=== PATIENT | female | born 1970 | race Caucasian/White ===

== ENCOUNTER 2024-08-30 08:14 | Day surgery (SDC) | payer MEDICAID ==
[2024-08-30] MEDS ORDERED: Depo-Medrol 40 MG/ML IM ONE (08:15)
[2024-08-30] MEDS ORDERED: BUPIVACAINE 0.5% VIAL IJ ONE (08:15)
[2024-08-30] MEDS ORDERED: propofoL IV ONE (10:24)
[2024-08-30] MEDS ORDERED: Lactated Ringers 1,000 ML IV ONE (10:53)
--- NOTE | 2024-08-30 12:39 | XRAY ---
Indication: Left shoulder and subacromial bursa injection. Intraoperative fluoroscopy provided for 15 seconds. 2 digital spot images submitted for interpretation demonstrates needle tip projecting over left glenohumeral joint superiorly. Second needle tip subacromial. Small amount of contrast injected for both needle placement. Correlate with intraoperative findings/report.
--- NOTE | 2024-08-30 12:39 | XRAY ---
Indication: Right shoulder and subacromial bursa injection. Intraoperative fluoroscopy provided for 20 seconds. 2 digital spot images submitted for interpretation demonstrates needle tip projecting over right glenohumeral joint superiorly. Second needle tip subacromial. Small amount of contrast injected for both needle placement. Correlate with intraoperative findings/report.
--- NOTE | 2024-08-30 13:07 | XRAY ---
20 seconds of fluoroscopy was used in surgery for a right intra-articular shoulder and subacromial bursa injection.
--- NOTE | 2024-08-30 13:08 | XRAY ---
15 seconds of fluoroscopy was used in surgery for a left intra-articular shoulder and subacromial bursa injection.
== END 2024-08-30 11:00 | disposition home or self-care (01) ==
LOC: SDC-PAIN 08:14
PROVIDERS: ATTEND Psychiatry & Neurology Pain Medicine
DX: M19.012 Primary osteoarthritis, left shoulder (principal); M75.52 Bursitis of left shoulder; M75.51 Bursitis of right shoulder; E11.9 Type 2 diabetes mellitus without complications
CPT/HCPCS: 20610; 73030; 77002; 82947; 93005; J2704; Q9966

== ENCOUNTER 2025-01-10 08:19 | Day surgery (SDC) | payer MEDICAID ==
[2025-01-10] MEDS ORDERED: BUPIVACAINE 0.5% VIAL IJ ONE (08:20)
[2025-01-10] MEDS ORDERED: methylPREDNISolone acetate IM ONE (08:20)
[2025-01-10] MEDS ORDERED: LIDOCAINE HCL 1% 50 MG/5 ML VL IJ ONE (08:20)
[2025-01-10] MEDS ORDERED: Lactated Ringers 1,000 ML IV ONE (10:41)
[2025-01-10] MEDS ORDERED: propofoL IV ONE (11:36)
--- NOTE | 2025-01-10 11:47 | XRAY ---
Indication: Left L4-S1 RFA. Intraoperative fluoroscopy provided for 30 seconds. 3 digital spot image submitted for interpretation demonstrates posterior needle tips projecting over expected left L4-S1 nerve roots. Correlate with intraoperative findings/report.
--- NOTE | 2025-01-10 12:16 | XRAY ---
30 seconds of fluoroscopy was used in surgery for a left L4-S1 RFA.
== END 2025-01-10 10:26 | disposition home or self-care (01) ==
LOC: SDC-PAIN 08:19
PROVIDERS: ATTEND Psychiatry & Neurology Pain Medicine
DX: M47.817 Spondylosis without myelopathy or radiculopathy, lumbosacral region (principal); E11.9 Type 2 diabetes mellitus without complications

== ENCOUNTER 2025-01-24 09:09 | Day surgery (SDC) | payer MEDICAID ==
[2025-01-24] MEDS ORDERED: LIDOCAINE HCL 1% 50 MG/5 ML VL IJ ONE (09:10)
[2025-01-24] MEDS ORDERED: methylPREDNISolone acetate IM ONE (09:10)
[2025-01-24] MEDS ORDERED: BUPIVACAINE 0.5% VIAL IJ ONE (09:10)
[2025-01-24] MEDS ORDERED: propofoL IV ONE (11:08)
[2025-01-24] MEDS ORDERED: Lactated Ringers 1,000 ML IV ONE (12:40)
--- NOTE | 2025-01-24 12:53 | XRAY ---
Indication: Right L4-S1 RFA. Intraoperative fluoroscopy provided for 18 seconds. 3 digital spot images submitted for interpretation demonstrates posterior needle tips projecting over expected right L4-S1 nerve roots. Correlate with intraoperative findings/report.
--- NOTE | 2025-01-24 12:58 | XRAY ---
18 seconds of fluoroscopy was used in surgery for a right L4-S1 RFA.
== END 2025-01-24 11:45 | disposition home or self-care (01) ==
LOC: SDC-PAIN 09:09
PROVIDERS: ATTEND Psychiatry & Neurology Pain Medicine
DX: M47.817 Spondylosis without myelopathy or radiculopathy, lumbosacral region (principal); E11.9 Type 2 diabetes mellitus without complications

== ENCOUNTER 2025-03-15 06:46 | Day surgery (SDC) | payer MEDICAID ==
[2025-03-15] MEDS ORDERED: BUPIVACAINE 0.5% VIAL IJ ONE (06:47)
[2025-03-15] MEDS ORDERED: methylPREDNISolone acetate IM ONE (06:47)
[2025-03-15] MEDS ORDERED: propofoL IV ONE ×2 (08:19→08:28)
[2025-03-15] MEDS ORDERED: Lactated Ringers 1,000 ML IV ONE (09:54)
--- NOTE | 2025-03-15 10:16 | XRAY ---
Indication: Right knee injection. Intraoperative fluoroscopy provided for 5 seconds. Single digital spot image submitted for interpretation demonstrates needle tip projecting over right femur intercondylar notch. Small amount of contrast injected for needle tip placement. Correlate with intraoperative findings/report.
--- NOTE | 2025-03-15 12:08 | XRAY ---
5 seconds of fluoroscopy was used in surgery for a right intra-articular knee injection.
== END 2025-03-15 08:50 | disposition home or self-care (01) ==
LOC: SDC-PAIN 06:46
PROVIDERS: ATTEND Psychiatry & Neurology Pain Medicine
DX: M17.11 Unilateral primary osteoarthritis, right knee (principal)